=== PATIENT | male | born 2000 | race Caucasian/White ===

== ENCOUNTER 2019-10-01 19:44 | Emergency (ER) | payer OTHER ==
[~2019-10-01] VITALS: Ht 177.8 cm; Wt 102.3 kg
[2019-10-01 19:45] VITALS: BP 152/88
[2019-10-01] MEDS ORDERED: IBUP1TAB7 PO (19:49)
[2019-10-01] MEDS ORDERED: NAPROXEN 250 MG TAB PO ONE (21:30)
[2019-10-01] MEDS ORDERED: NAPR-885 PO (21:32)
--- NOTE | 2019-10-02 08:13 | REP ---
Right humerus: Two views. History: Injury in a fall. Findings: AP and lateral views of the right humerus demonstrate normal bones, joints and soft tissues. No fracture or subluxation is seen. Impression: Negative radiographs of the right humerus. Electronically Signed by Danial Horne MD 10/02/2019 08:04 A
--- NOTE | 2019-10-02 08:18 | REP ---
Right shoulder: Three views. History: Trauma. Subluxation. Findings: The right glenohumeral and acromioclavicular joints are normally aligned. Periarticular soft tissues are unremarkable. No fracture or subluxation is seen. Impression: Negative radiographs of the right shoulder. Electronically Signed by Danial Horne MD 10/02/2019 08:09 A
== END 2019-10-01 21:42 | disposition home or self-care (01) ==
LOC: M ED 19:44
DX: S43.401A Unspecified sprain of right shoulder joint, initial encounter (principal); W19.XXXA Unspecified fall, initial encounter; Y92.018 Other place in single-family (private) house as the place of occurrence of the external cause